=== PATIENT | male | born 1980 | race Caucasian/White ===

== ENCOUNTER 2016-05-31 05:51 | Inpatient (IN) | payer OTHER ==
--- NOTE | 2016-05-26 10:13 | GHP ---
[f rep st] PREOP HISTORY AND PHYSICAL DATE OF ADMISSION: 05/31/2016 PROBLEM: Right hip arthritis. HISTORY OF PRESENT ILLNESS: The patient is a 35-year-old man with severe degenerative arthritis of h is right hip. He is admitted for a right hip Adrienne hip resurfacing arthroplasty. He has had pr ogressive trouble with his right hip since 2009. It has been much worse in the past 6 to 12 months. He is having daily pain and night pain. He states that he has been active with sports his whole lif e. His hip is painful now with simple walking, and his activities are very limited. He can no longe r ride a bike. He is using ibuprofen most days. He has trouble putting on his shoes and socks on th e right foot. He was told that he had hip dysplasia, at age 16. He tried 8 months of physical thera py, in 2014. He had 1 cortisone injection, in November of 2015, which helped briefly. PAST MEDICAL HISTORY: Excellent general health. No history of heart disease, stents, DVT, hepatitis , or sleep apnea. No history of previous serious MRSA Staph infections. CURRENT MEDICATIONS: None. ALLERGIES: Sulfa. He does not remember the reaction. Metal allergies: None. Latex allergy: None . SOCIAL HISTORY: The patient is . He has a small son. He does not smoke cigarettes and occas ionally drinks alcohol. 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 FAMILY HISTORY: Positive for cancer and diabetes. PHYSICAL EXAMINATION: GENERAL: He is a healthy-appearing young man. Height 5 feet, 10 inches. Cuco ght 175 pounds. BMI 25.1. EYES: The conjunctivae and sclerae are clear. Pupils are round and reactive. MOUTH: Good oral hygiene. No loose teeth. CHEST: Clear. HEART: Regular rhythm. No murmurs. EXTREMITIES: Pertinent findings are limited to his right hip. He has full hip extension and 70 degr ees of flexion. As he flexes the hip, he develops a 20-degree external rotation contracture and has no further internal or external rotation. Abduction 20 degrees. His right thigh and buttocks are sm aller than the left. IMAGING: Films show a very severe degenerative arthritis of the right hip. He has a shallow acetabu lum. He is bone on bone. He has acetabular dysplasia and mild cartilage space narrowing in his left hip. IMPRESSION ON ADMISSION: Bilateral hip acetabular dysplasia. The right hip is very arthritic. He will undergo a right hip Hastings hip resurfacing arthroplasty. The surgery has been described to him, including the risks, complications, expectations and recovery time. I have talked to him abo ut the risk of dislocation, femoral neck fracture, sciatic nerve injury and infection. I have spent considerable time discussing the potential risks of the metal on metal bearing surface and the metal ion levels in the soft tissues around the hip joint and in the blood. He understands that he is very young for any type of hip arthroplasty. He will probably require revision surgery in the future. E ventually, he will need reconstructive surgery on his left hip as well. All of his questions have be en answered, and he consents to surgery. Copy requested to: Drake Acevedo MD [facility] /[id number]/MODL
[2016-05-26 10:40] LABS: % IMMATURE GRANULYOCYTES 0.3 % (0.0-1.1); ABSOLUTE IMMATURE GRANULOCYTES 0.02 10^3/uL (0.00-0.10); ADD DIFF? NO; ADD MORPH? NO; ADD SCAN? NO; ATYPICAL LYMPHOCYTE FLAG 10 (0-99); FRAGMENT RBC FLAG 0 (0-99); HEMATOCRIT 44.9 % (40.0-51.0); HEMOGLOBIN 15.7 g/dL (13.7-17.5); LEFT SHIFT FLG 0 (0-99); LIPEMIA HEMOLYSIS FLAG 90 (0-99); MEAN CELL VOLUME 85.9 fL (81.5-99.8); MEAN PLATELET VOLUME 9.7 fL (8.7-11.7); PLATELET CLUMPS FLAG 0 (0-99); PLATELET COUNT 189 10^3/uL (150-400); RED BLOOD CELL COUNT 5.23 10^6/uL (4.40-6.38); RED CELL DISTRIBUTION WIDTH 12.4 % (11.5-15.2)
[2016-05-31] MEDS ORDERED: POVIDONE-IODINE 20 ML in SODIUM CL IRRIG SOLUTION 500 ML IRR ONE (06:00)
[2016-05-31] MEDS ORDERED: ACETAMINOPHEN 325 MG TAB PO ONE (06:00)
[2016-05-31] MEDS ORDERED: ROPI/epiNEPH/KETOROLAC JOINT COCKTAIL IU ONE (06:00)
[2016-05-31] MEDS ORDERED: FAMOTIDINE 20 MG TAB PO ONE (06:00)
[2016-05-31] MEDS ORDERED: CEFAZOLIN 2 GM/DEXTR 100 ML IV ONE (06:00)
[2016-05-31] MEDS ORDERED: CHLORHEXIDINE GLUC HIBICLENS 118 ML BTL TP ONE (06:00)
[2016-05-31] MEDS ORDERED: DEXAMETHASONE 4 MG/ML VIAL IVP ONE (06:00)
[2016-05-31] MEDS ORDERED: TRANEXAMIC ACID 1,620 MG in NS 100 ML IV ONE (06:00)
[2016-05-31] MEDS ORDERED: LIDOCAINE 1% 5 ML SDV ID PRN (06:14)
[2016-05-31] MEDS ORDERED: LR 1,000 ML IV ONE (06:14)
[2016-05-31] MEDS ORDERED: SKIN ADHESIVE (DERMABOND) 1 EACH TP ONE (06:40)
[2016-05-31] MEDS ORDERED: ceFAZolin 1 GM/5 ML SYR ONE (06:41)
[2016-05-31] MEDS ORDERED: MIDAZOLAM 2 MG/2 ML VIAL ONE ×2 (06:56→07:07)
[2016-05-31] MEDS ORDERED: PROPOFOL/EMULSION 500 MG/50 ML BOTTLE IV ONE ×2 (06:56→07:45)
[2016-05-31] MEDS ORDERED: fentaNYL 100 MCG/2 ML INJ ONE (06:56)
[2016-05-31] MEDS ORDERED: ONDANSETRON 4 MG/2 ML VIAL ONE (08:01)
[2016-05-31] MEDS ORDERED: DEXAMETHASONE 4 MG/ML VIAL ONE ×2 (08:01)
[2016-05-31] MEDS ORDERED: epHEDrine SULFATE 10 MG/ML SYR ONE ×2 (08:02)
[2016-05-31] MEDS ORDERED: PHENYLEPHRINE HCL 100 MCG/ML SYR ONE (08:02)
--- NOTE | 2016-05-31 09:15 | POSTOPPROG ---
Post Op Note Date of Operation: 05/31/16 Surgeon: Rick Mccullough Machine Container Washer: Aleksandr/Eddie Anesthesiologist: Damion Anesthesia: IV Sedation, Spinal Post-op Diagnosis: right hip arthritis Procedure: R BEBA Inf/Abcess present in the surg proc area at time of surgery?: No EBL: 100-500
[2016-05-31] MEDS ORDERED: traMADol 50 MG TAB PO PRN (09:22)
[2016-05-31] MEDS ORDERED: BISACODYL 10 MG SUPP PR PRN (09:22)
[2016-05-31] MEDS ORDERED: METOCLOPRAMIDE 10 MG/2 ML VIAL IVP PRN (09:22)
[2016-05-31] MEDS ORDERED: ONDANSETRON DISINTEGRATING 4 MG TAB PO PRN (09:22)
[2016-05-31] MEDS ORDERED: PHARMACY PAIN CONSULT 1 EA MISC PRN (09:22)
[2016-05-31] MEDS ORDERED: POLYETHYLENE GLYCOL 3350 17 GM PKT PO PRN (09:22)
[2016-05-31] MEDS ORDERED: PROMETHAZINE HCL 25 MG SUPPR PR PRN (09:22)
[2016-05-31] MEDS ORDERED: DIPHENOXYLATE/ATROPINE LOMOTIL 1 TAB PO PRN (09:22)
[2016-05-31] MEDS ORDERED: diphenhydrAMINE 25 MG CAP PO PRN (09:22)
[2016-05-31] MEDS ORDERED: LACTULOSE 20 GM/30 ML UDCUP PO PRN (09:22)
[2016-05-31] MEDS ORDERED: PROMETHAZINE HCL 25 MG/ML VIAL IVP PRN (09:22)
[2016-05-31] MEDS ORDERED: NS 500 ML IV PRN (09:22)
[2016-05-31] MEDS ORDERED: ONDANSETRON 4 MG/2 ML VIAL IVP PRN (09:22)
[2016-05-31] MEDS ORDERED: TEMAZEPAM 15 MG CAP PO PRN (09:22)
[2016-05-31] MEDS ORDERED: MAGNESIUM HYDROXIDE 30 ML UDCUP PO PRN (09:22)
[2016-05-31] MEDS ORDERED: LR 1,000 ML IV SCH (09:30)
--- NOTE | 2016-05-31 09:48 | DX ---
Portable AP pelvis May 31, 2016, 0933 hours HISTORY: Assess hardware. FINDINGS: Resurfacing hardware of the right femoral head and neck is in good position. No fracture. IMPRESSION: Right hip resurfacing.
--- NOTE | 2016-05-31 09:52 | GOP ---
[f rep st] OPERATIVE REPORT DATE OF OPERATION: 05/31/2016 SURGEON: Rick Mcculolugh MD PORTABLE MACHINE CUTTER: Ej Brandon and Roverto Morgan. ANESTHESIA: A combination of Marcaine spinal and IV sedation. ANESTHESIOLOGIST: Dr. Ana Paula Bruno. PREOPERATIVE DIAGNOSIS: Right hip severe degenerative arthritis with acetabular dysplasia. POSTOPERATIVE DIAGNOSIS: Right hip severe degenerative arthritis with acetabular dysplasia. PROCEDURE PERFORMED: Right hip De Ruyter hip resurfacing arthroplasty. FINDINGS: DESCRIPTION OF PROCEDURE: The patient was given 2 g of IV Ancef preoperatively within 60 minutes of surgery. He also received IV tranexamic acid at a dose of 20 mg/kg. He was placed on the operating room table and given spinal anesthesia with Marcaine by Dr. Bruno. He was then placed supine and g iven IV sedation. A Barber catheter was not used. He wore a compressive stocking and SCD on the nono perative leg. He was rolled to the left lateral decubitus position. An axillary roll was used and a ll pressure points were carefully padded. The position was secured with the pegboard table attachmen t. I was careful to lock his pelvis in a rigid vertical position. His perineum was isolated with pl astic adhesive drapes. His right hip and right lower extremity were prepped with ChloraPrep. They w ere draped free using sterile sheets, stockinette, and Ioban plastic drape. The [employer] time-out was performed to verify the correct patient identity and the c orrect surgical side. The [place] time-out was also performed. I made a 6-7 inch straight oblique posterolateral hip skin incision. Subcutaneous tissues were sharp ly divided, and hemostasis was obtained using electrocautery. The fascia julio was identified and spl it along the axis of its fibers. I then curved posteriorly and proximally split the fascia of the gl uteus arthur and bluntly split the muscle fibers in line with their orientation. His sciatic nerve was identified and protected throughout the procedure. The Charnley self-retaining retractor was ins erted. The external rotators and the posterior hip capsule were divided as separate layers at the ba se of the femoral neck, tagged, and reflected posteriorly. His gluteus arthur tendon was divided an d tagged in order to improve exposure and release tension on the sciatic nerve. The hip was dislocat ed posteriorly. I used a sizing gauge to check the diameter of the neck, and concluded that 48 mm wa s the proper head size. I performed a circumferential capsulotomy. I was able to retract the femora l head anteriorly and superiorly and hold it out of place with appropriate retractors. The remnant o f his labrum was excised. The labrum was largely ossified. His acetabulum was reamed sequentially u p to 54 mm. He had a very deep medial acetabular osteophyte. I was careful to deepen the acetabulum to the true acetabular floor. I selected the Adrienne monoblock porous-coated acetabular componen t with an outside diameter of 54 mm. This was firmly impacted and was very tight. I was careful to determine proper inclination and anteversion. I used a remnant of the transverse acetabular ligament and other acetabular bony landmarks to help me properly orient the cup. He had large posterior, inf erior osteophytes which I removed with an osteotome and rongeur. I was careful to leave a good lip o f bone and capsule extending beyond the anterior-inferior lip of the metal cup. I then returned to preparation of the femoral head. Using appropriate jigs and guides, I inserted a guide pin into the femoral head and neck. I was careful to position it in such a way that there woul d be no notching of the neck. The large sterile metal goniometer was used to check the neck shaft an gle. I reamed over the guide pin and inserted the reaming guide. I then used the cylindrical reamer down to the head and neck junction. This was followed by the chamfer reamer. The head was sized fo r 48 mm. There was no impingement or damage to the neck. I drilled a small hole in the lesser troch anter and inserted a suction cannula to create negative pressure in the medullary canal. Small holes were drilled on the flattened chamfer surfaces of the prepared head for cement anchors. The head wa s thoroughly cleaned with the pulsating lavage and carefully dried. I used a CarboJet device to blow dry the cancellous surfaces. A single batch of Simplex cement with tobramycin was mixed. At about 50 seconds, I poured the liquid cement into the head component, inserted it onto the femoral head and impacted it into place. Excess cement was removed before it hardened. The. The acetabulum was irr igated cleaned and inspected, and the hip was reduced. Stability and range of motion were checked. I placed my finger along the anterior aspect of the acetabular component and flexed the hip to 110 de grees. There was no anterior impingement. The suction cannula on the lesser trochanter was removed. The wound was thoroughly irrigated with a dilute Betadine solution. 40 mL of the joint anesthetic cocktail were injected into the capsule, deep musculature and the subcutaneous tissues along the skin edges. His sciatic nerve was reinspected and looked unharmed. The external rotators and the posterior hip c apsule were repaired in separate layers with #2 FiberWire sutures through drill holes in the greater trochanter. This provided a strong posterior capsular and external rotator repair. The gluteus maxi mus tendon was repaired with 2 interrupted [id number] #2 FiberWire sutures. The fascia julio was repaired 1st with 2 interrupted [id number] #2 FiberWire sutures, followed by a running #2 barbe d Ethicon side effects PDO suture. The subcutaneous tissues were closed with a running 0 barbed Ethi con Stratafix Monoderm suture. The skin was closed with a running 3-0 barbed Ethicon Stratafix Monod erm subcuticular suture. The skin edges were reapproximated and sealed with Dermabond glue. The wou nd was covered with a strip of Telfa, and everything was held in place with a piece of clear plastic Tegaderm. The estimated blood loss was about 400 mL. I used a Guardado and Nephew De Ruyter hip resurfacing system. The acetabular component was 54 mm in d iameter and press-fit. The femoral head was 48 mm and cemented. He was awakened from anesthesia and rolled to the supine position on his [facility]. A long-leg compressive stocking and SCD were applied to the operative leg. An abduction pillow was placed between his knees. He was taken to PAC U in satisfactory condition. There were no recognized intraoperative complications. The sponge and needle count were correct on 2 occasions. Ej Brandon and Roverto Morgan acted as surgical assistants. Their assistance was a medical necess ity. Copy requested to: Drake Acevedo M.D. [facility], [employer] [facility] /[id number]/MODL
[2016-05-31] MEDS: CYCLOBENZAPRINE 10 MG TAB PO PRN (10:53)
[2016-05-31] MEDS: KETOROLAC 30 MG/1 ML SDV IVP PRN ×2 (10:53→17:24)
[2016-05-31] MEDS: oxyCODONE IR 5 MG TAB PO PRN ×3 (10:54→17:25)
[2016-05-31] MEDS: ACETAMINOPHEN 325 MG TAB PO SCH ×3 (12:43→22:19)
[2016-05-31] MEDS: TRANEXAMIC ACID 650 MG TAB PO SCH ×3 (12:43→22:19)
[2016-05-31] MEDS: ceFAZolin 2 GM/DEXTROSE 100 ML IV SCH ×2 (14:31→22:20)
[2016-05-31 19:32] VITALS: RESP 16
[2016-05-31] MEDS: SENNOSIDES/DOCUSATE SODIUM TAB PO SCH (19:34)
[2016-05-31] MEDS: ASPIRIN 325 MG TAB PO SCH (19:43)
[2016-05-31] MEDS: FAMOTIDINE 20 MG TAB PO SCH (19:43)
[2016-06-01] MEDS: ACETAMINOPHEN 325 MG TAB PO SCH ×2 (04:56→11:30)
[2016-06-01] MEDS: CYCLOBENZAPRINE 10 MG TAB PO PRN ×2 (04:59→11:30)
[2016-06-01 05:33] LABS: HEMATOCRIT 37.1 % (40.0-51.0); HEMOGLOBIN 12.8 g/dL (13.7-17.5)
[2016-06-01] MEDS: SENNOSIDES/DOCUSATE SODIUM TAB PO SCH (07:09)
[2016-06-01] MEDS: FAMOTIDINE 20 MG TAB PO SCH (07:10)
[2016-06-01] MEDS: ASPIRIN 325 MG TAB PO SCH (07:10)
[2016-06-01] MEDS: KETOROLAC 30 MG/1 ML SDV IVP PRN (07:11)
[2016-06-01] MEDS: oxyCODONE IR 5 MG TAB PO PRN (07:12)
[2016-06-01 07:24] VITALS: BP 112/64; PULSE 71; TEMP 98.2; O2SAT 95
--- NOTE | 2016-06-01 07:30 | SOAPPROG ---
SOAP Progress Note Assessment/Plan: Assessment: Afebrile. Awake and alert. Mild pain. Has been up and walking. H/H is good. Sciatic nerve intact. Films look good. Plan:Up with PT today. DC later today. 06/01/16 07:29 Objective: Vital Signs Temp Pulse Resp BP Pulse Ox 36.8 C 71 16 112/64 95 06/01/16 07:22 06/01/16 07:22 06/01/16 07:22 06/01/16 07:22 06/01/16 07:22 Laboratory Results 06/01/16 04:23 05/31/16 06/01/16 06/02/16 05:59 05:59 05:59 Intake Total 3800 Output Total 4270 Balance -470 ICD10 Worksheet Patient Problems: Problems Problem Status Diagnosed Osteoarthritis of right hip Acute
--- NOTE | 2016-06-01 08:20 | GDS ---
[f rep st] DISCHARGE SUMMARY ADMISSION DIAGNOSIS: Right hip severe degenerative arthritis. DISCHARGE DIAGNOSIS: Right hip severe degenerative arthritis. OPERATION PERFORMED: Right hip Rougon hip resurfacing arthroplasty. POSTOP COMPLICATIONS: None. CONDITION ON DISCHARGE: Improved. DESCRIPTION OF HOSPITAL COURSE: The patient was admitted to the hospital the morning of surgery. Hi s admission CBC was normal. The same day under a combination of Marcaine spinal and IV sedation, he underwent a right hip Adrienne hip resurfacing arthroplasty. Postoperatively, he was treated with multimodal DVT prophylaxis including aspirin. On the 1st postoperative day, his hemoglobin and hemat ocrit were 12.8 and 37.1. He did not require any transfused blood. He was seen by Physical Therapy, and made good progress with ambulation and stairs. By the time of discharge, he was afebrile and wa s independent in walking. DISPOSITION: The patient discharged to his home. He may progress to full weightbearing on the right as tolerated. Use ANGELES stockings for 1 week. Use an abduction pillow in bed for 3 weeks. Continue aspirin 325 mg p.o. daily for 21 days. He will go to outpatient physical therapy in a week. I will see him back in the office on June 22, 2016. If there are any problems, he is to call me at the [facility]. Copy requested to: Drake Acevedo M.D. [facility], [place] [facility] /[id number]/MODL
[2016-06-01] MEDS ORDERED: MULTIVITAMINS 1 EACH TAB PO SCH (09:00)
[2016-06-01] MEDS ORDERED: FERROUS SULFATE 140 MG TAB.ER PO SCH (09:00)
[2016-06-01] MEDS: TRANEXAMIC ACID 650 MG TAB PO SCH (09:20)
== END 2016-06-01 12:41 | disposition home or self-care (01) | DRG 470 ==
LOC: F3N 05:51
PROVIDERS: ADMIT Orthopaedic Surgery; ATTEND Orthopaedic Surgery
PROC: 0SR90J9 Replacement of Right Hip Joint with Synthetic Substitute, Cemented, Open Approach (ICD-10-PCS; principal; 2016-05-31 07:15)
DX: M16.11 Unilateral primary osteoarthritis, right hip (principal); Q65.89 Other specified congenital deformities of hip
CPT/HCPCS: 97110-GP; 97116-GP; 97161-GP; 97165-GO; 97530-GP; C1713; C1769; J0171; J0690; J1100; J1885; J2250; J2370; J2405; J2704; J2795; J3010